=== PATIENT | female | born 2005 | race Caucasian/White ===

== ENCOUNTER 2025-03-28 21:35 | Inpatient (IN) | payer OTHER ==
[~2025-03-28] VITALS: Ht 162.6 cm; Wt 64.9 kg
[2025-03-28 21:55] LABS: BASOPHILS % (AUTO) 0.2 % (0.0-2.0); EOSINOPHILS % (AUTO) 0.6 % (1.0-6.0); HEMATOCRIT 38.1 % (36-46); HEMOGLOBIN 12.7 g/dL (12.0-16.0); LYMPHOCYTES # (AUTO) 1.9 K/uL (1.0-4.8); LYMPHOCYTES % (AUTO) 13.8 % (22.0-44.0); MEAN CORPUSCULAR HEMOGLOBIN 29.9 pg (26.0-34.0); MEAN CORPUSCULAR HGB CONC 33.3 G/dL (31.0-37.0); MEAN CORPUSCULAR VOLUME 90 fL (80-100); MONOCYTES % (AUTO) 7.2 % (2.0-9.0); NEUTROPHILS # (AUTO) 10.8 K/uL (1.8-7.7); NEUTROPHILS % (AUTO) 78.2 % (40.0-70.0); PLATELET COUNT (AUTO) 305 K/uL (150-450); RED BLOOD CELL COUNT(AUTO) 4.25 MIL/uL (4.00-5.20); RED CELL DISTRIBUTION WIDTH 12.9 % (11.5-14.5); WHITE BLOOD COUNT (AUTO) 13.7 K/uL (4.5-11.0)
[2025-03-28 22:03] LABS: COVID AG,FIA SOURCE NASAL SWAB
[2025-03-28 22:05] LABS: ANION GAP 12 mmol/L (8-16); CALCIUM, TOTAL 9.3 mg/dL (8.8-10.5); CARBON DIOXIDE 24 mmol/L (22-29); CHLORIDE 105 mmol/L (98-107); CREATININE 0.68 mg/dL (0.60-1.30); GLOMERULAR FILTR. RATE CALC > 60 mL/min (>60); GLUCOSE,RANDOM 105 mg/dL (70-110); POTASSIUM 3.6 mmol/L (3.5-5.1); SODIUM SERUM 141 mmol/L (136-145); UREA NITROGEN, BLOOD 10 mg/dL (7-18)
[2025-03-28 22:12] LABS: ALCOHOL, BLOOD (SERUM) < 3 mg/dL (0-10)
[2025-03-28 22:22] LABS: SARS-COV2 (COVID) ANTIGEN,FIA Negative (Negative)
[2025-03-29 03:43] VITALS: O2SAT 100
[2025-03-29 05:10] VITALS: BP 142/84; PULSE 87; RESP 18; TEMP 98.6; O2SAT 98
[2025-03-29 08:00] VITALS: BP 156/90; PULSE 96; RESP 18; TEMP 98.6; O2SAT 96
[2025-03-29] MEDS: RisperiDONE 1 MG TABLET PO SCH (10:30)
[2025-03-29] MEDS ORDERED: MAG HYDROX/ALUMINUM HYD/SIMETH ES 30 ML SUSPENSION UDCUP PO PRN (12:30)
[2025-03-29] MEDS ORDERED: ALBUTEROL SULFATE HFA 90 MCG/PUFF 8 GM INHALER IH PRN (12:30)
[2025-03-29] MEDS ORDERED: IBUPROFEN 400 MG TABLET PO PRN (12:30)
[2025-03-29] MEDS ORDERED: PETROLATUM,WHITE 28 GM JELLY TP PRN (12:30)
[2025-03-29] MEDS ORDERED: GuaiFENesin/D-METHORPHAN [SUGAR-FREE] 200-20MG/10 ML SYRUP UDCUP PO PRN (12:30)
[2025-03-29] MEDS ORDERED: DOCUSATE SODIUM 100 MG CAPSULE PO PRN (12:30)
[2025-03-29] MEDS ORDERED: MAGNESIUM HYDROXIDE SUSPENSION 30 ML UDCUP PO PRN (12:30)
[2025-03-29] MEDS ORDERED: HALOPERIDOL LACTATE 5 MG/ML VIAL ONE (16:11)
[2025-03-29] MEDS ORDERED: DiphenhydrAMINE HCL 50 MG/ML VIAL ONE (16:12)
[2025-03-29] MEDS ORDERED: LORazepam 2 MG/ML VIAL ONE (16:12)
[2025-03-29] MEDS: LORazepam 2 MG/ML VIAL IM ONE (16:37)
[2025-03-29] MEDS: HALOPERIDOL LACTATE 5 MG/ML VIAL IM ONE (16:38)
[2025-03-29] MEDS: DiphenhydrAMINE HCL 50 MG/ML VIAL IM ONE (16:39)
[2025-03-30 05:32] VITALS: BP 127/87; PULSE 97; RESP 18; TEMP 97.8; O2SAT 100
[2025-03-30 08:32] VITALS: BP 146/82; PULSE 76; RESP 18; TEMP 97.8; O2SAT 95
[2025-03-30 08:57] LABS: CHOL/HDL RATIO 2.6 (3.9-5.7); THYROID STIMULATING HORMONE 0.91 uIU/mL (0.36-3.74)
[2025-03-30] MEDS ORDERED: NICOTINE 14 MG/24 HOUR PATCH TD PRN (20:30)
[2025-03-30 21:21] VITALS: BP 135/83; PULSE 80; RESP 18; TEMP 97.5; O2SAT 96
[2025-03-30] MEDS: NICOTINE 14 MG/24 HOUR PATCH TD PRN (21:31)
[2025-03-31] MEDS: ONDANSETRON 4 MG TABLET PO PRN (04:05)
[2025-03-31 08:52] VITALS: BP 136/84; PULSE 94; RESP 16; TEMP 97.1; O2SAT 98
[2025-03-31 20:25] VITALS: BP 141/94; PULSE 104; RESP 16; TEMP 98.5; O2SAT 100
[2025-03-31] MEDS: ACETAMINOPHEN 325 MG TABLET PO PRN (20:28)
[2025-03-31 20:29] VITALS: RESP 16
[2025-03-31 21:39] VITALS: RESP 17
[2025-04-01 08:39] VITALS: BP 143/80; PULSE 100; RESP 17; TEMP 96.9; O2SAT 100
[2025-04-01 10:36] LABS: APPEARANCE,URINE CLEAR (CLEAR); BILIRUBIN,URINE NEGATIVE (NEGATIVE); COLOR,URINE LIGHT YELLOW (YELLOW); GLUCOSE, URINE (UA) NEGATIVE (NEGATIVE); LEUKOCYTE ESTERASE ,URINE TRACE (NEGATIVE); NITRATE,URINE NEGATIVE (NEGATIVE); OCCULT BLOOD,URINE NEGATIVE (NEGATIVE); PH,URINE 7.5 (5.0-8.0); PH,URINE DRUG SCREEN 7.5 (5.0-8.0); PROTEIN,URINE NEGATIVE (NEGATIVE); UROBILINOGEN,URINE <=1.0 mg/dL (<=1.0)
[2025-04-01 10:46] LABS: AMPHET/METH SCREEN,URINE NEGATIVE (NEGATIVE); BARBITURATE SCREEN, URINE NEGATIVE (NEGATIVE); BENZODIAZEPINES SCREEN,URINE NEGATIVE (NEGATIVE); CANNABINOID SCREEN,URINE POSITIVE (NEGATIVE); METHADONE SCREEN, URINE NEGATIVE (NEGATIVE); OPIATE SCREEN,URINE NEGATIVE (NEGATIVE); PHENCYCLIDINE SCREEN,URINE NEGATIVE (NEGATIVE)
[2025-04-01 11:01] LABS: RBC,URINE None Seen /HPF (0-2); WBC,URINE 0-2 /HPF (0-5)
[2025-04-01 11:02] LABS: BACTERIA,URINE None Seen /HPF (None Seen); SQUAMOUS EPITHELIAL CELL,UR Few /LPF (None Seen)
[2025-04-01 11:17] LABS: ALCOHOL, URINE DRUG SCREEN NEGATIVE (NEGATIVE); COCAINE SCREEN,URINE NEGATIVE (NEGATIVE)
[2025-04-01 20:17] VITALS: BP 136/82; PULSE 89; RESP 17; TEMP 97.8; O2SAT 100
[2025-04-02 08:07] VITALS: BP 132/83; PULSE 90; RESP 17; TEMP 97.6; O2SAT 97
[2025-04-02 08:27] LABS: BASOPHILS % (AUTO) 0.5 % (0.0-2.0); EOSINOPHILS % (AUTO) 4.3 % (1.0-6.0); HEMATOCRIT 41.5 % (36-46); LYMPHOCYTES # (AUTO) 2.9 K/uL (1.0-4.8); LYMPHOCYTES % (AUTO) 23.6 % (22.0-44.0); MEAN CORPUSCULAR HEMOGLOBIN 30.2 pg (26.0-34.0); MEAN CORPUSCULAR HGB CONC 33.6 G/dL (31.0-37.0); MEAN CORPUSCULAR VOLUME 90 fL (80-100); MONOCYTES # (AUTO) 1.4 K/uL (0.1-1.0); MONOCYTES % (AUTO) 11.4 % (2.0-9.0); NEUTROPHILS # (AUTO) 7.3 K/uL (1.8-7.7); NEUTROPHILS % (AUTO) 60.2 % (40.0-70.0); PLATELET COUNT (AUTO) 292 K/uL (150-450); RED BLOOD CELL COUNT(AUTO) 4.62 MIL/uL (4.00-5.20); RED CELL DISTRIBUTION WIDTH 12.9 % (11.5-14.5); WHITE BLOOD COUNT (AUTO) 12.1 K/uL (4.5-11.0)
== END 2025-04-02 16:57 | disposition left against medical advice (07) | DRG 885 ==
LOC: EMS 21:56 → B2S 03-29 04:00
PROVIDERS: ADMIT Psychiatry & Neurology Psychiatry; ATTEND Psychiatry & Neurology Psychiatry
PROC: GZHZZZZ Group Psychotherapy (ICD-10-PCS; principal; 2025-03-29)
DX: F25.0 Schizoaffective disorder, bipolar type (principal); R45.851 Suicidal ideations; F12.10 Cannabis abuse, uncomplicated; G47.00 Insomnia, unspecified; Z20.822 Contact with and (suspected) exposure to COVID-19; D72.829 Elevated white blood cell count, unspecified; Z91.012 Allergy to eggs; Z91.011 Allergy to milk products; Z79.899 Other long term (current) drug therapy; Z53.29 Procedure and treatment not carried out because of patient's decision for other reasons
CPT/HCPCS: 80048; 80061; 80307; 81001; 83036; 84443; 84703; 85025; 99285; G0480; J1200; J1630; J2060; Q0162